=== PATIENT | male | born 2000 | race Caucasian/White ===

== ENCOUNTER 2020-11-04 20:57 | Emergency (ER) | payer MEDICAID ==
[~2020-11-04] VITALS: Ht 185.4 cm; Wt 90.1 kg
[2020-11-04 20:59] VITALS: BP 143/74
[2020-11-04] MEDS ORDERED: TETanus/Pertussis (Acell)/Diphther VAC/PF (Tdap-Adult) 0.5ml syringe IMVAC ONE (21:25)
[2020-11-04] MEDS ORDERED: normal saline 1000ML IV soln IVB ONE ×2 (21:25)
[2020-11-04 21:51] LABS: BASOPHILS % (AUTO) 0.3 % (0-1); EOSINOPHILS # (AUTO) 0.1 X10'3 (0-0.9); EOSINOPHILS % (AUTO) 0.7 % (0-6); HEMATOCRIT 41.8 % (42.0-52.0); HEMOGLOBIN 14.2 g/dl (14.0-17.9); LYMPHOCYTES % (AUTO) 9.3 % (21-51); MEAN CORPUSCULAR HEMOGLOBIN 30.3 PG (27.0-31.0); MEAN CORPUSCULAR HGB CONC 33.9 g/dL (33.0-36.5); MEAN CORPUSCULAR VOLUME 89.4 FL (78-98); MEAN PLATELET VOLUME 7.5 FL (7.4-10.4); MONOCYTES % (AUTO) 8.8 % (2-12); NEUTROPHILS % (AUTO) 80.9 % (42-75); PLATELET COUNT 291 X10'3 (140-440); RED BLOOD COUNT 4.67 X10'6 (4.70-6.10); RED CELL DISTRIBUTION WIDTH 13.9 % (11.5-14.5); WHITE BLOOD COUNT 11.1 X10'3 (4.5-11.0)
[2020-11-04 22:05] LABS: ALANINE AMINOTRANSFERASE 20 U/L (12-78); ALBUMIN 3.7 G/DL (3.4-5.0); ALBUMIN/GLOBULIN RATIO 1.2 (1.1-1.5); ALKALINE PHOSPHATASE 67 IU/L (46-116); ANION GAP 13 (8-16); ASPARTATE AMINO TRANSFERASE 20 U/L (10-37); BILIRUBIN,TOTAL 0.7 MG/DL (0.1-1.0); BLOOD UREA NITROGEN 15 MG/DL (7-18); BUN/CREATININE RATIO 9.7 (5.4-32.0); CALCIUM 8.4 MG/DL (8.5-10.1); CHLORIDE 107 MMOL/L (99-107); CREATININE 1.54 MG/DL (0.60-1.10); GLUCOSE 95 MG/DL (70-104); POTASSIUM 3.1 MMOL/L (3.5-5.1); SODIUM 144 MMOL/L (135-145); TOTAL CARBON DIOXIDE 23.7 MMOL/L (24-32); TOTAL PROTEIN 6.8 G/DL (6.4-8.2); eGFR 57 ML/MIN
[2020-11-04 22:18] LABS: CKMB RELATIVE INDEX 0.3 RATIO (0-2.5); CREATINE KINASE 610 U/L (39-308); ETHANOL < 0.010 GM/DL (0.0-0.010)
== END 2020-11-04 22:53 ==
LOC: EDSEX 20:58 → ER 20:58
DX: S01.81XA Laceration without foreign body of other part of head, initial encounter (principal); S00.83XA Contusion of other part of head, initial encounter; F15.10 Other stimulant abuse, uncomplicated; Z02.89 Encounter for other administrative examinations; Y04.8XXA Assault by other bodily force, initial encounter; Y93.89 Activity, other specified; Y92.89 Other specified places as the place of occurrence of the external cause; Y99.8 Other external cause status
CPT/HCPCS: 36415; 70450; 70486; 80053; 80320; 82550; 82553; 84443; 85025; 90715; 99285; J7030; 96360

== ENCOUNTER 2024-10-02 17:36 | Inpatient (IN) | payer BC ==
[~2024-10-02] VITALS: Ht 188 cm; Wt 87.5 kg
[2024-10-02] MEDS ORDERED: acetaminophen 325mg tablet PO PRN (19:30)
[2024-10-02] MEDS ORDERED: magnesium hydroxide 30ml (MOM) UD suspension PO PRN (19:30)
[2024-10-02] MEDS ORDERED: loperamide 2mg capsule PO PRN (19:30)
[2024-10-02] MEDS ORDERED: mag hydrox/Alum hydrox/simeth 30ml oral suspension PO PRN (19:30)
[2024-10-02 19:37] VITALS: BP 148/79; PULSE 90; RESP 20; TEMP 98.6; O2SAT 100
[2024-10-02] MEDS: buprenorphine/naloxone 8MG-2MG SUBlingual film SL SCH (21:30)
[2024-10-03] MEDS: acetaminophen 325mg tablet PO PRN (00:32)
[2024-10-03 07:00] VITALS: RESP 15; O2SAT 100
[2024-10-03 07:04] LABS: CHOL/HDL RATIO 2.5 (0.00-4.99); CHOLESTEROL 135 MG/DL (0-200); HDL CHOLESTEROL 55 MG/DL (35-60); LDL CHOLESTEROL 74 MG/DL (50-100); TRIGLYCERIDES 44 MG/DL (20-135)
[2024-10-03 07:28] LABS: HEMOGLOBIN A1C 5.3 % (4.5-6.2)
[2024-10-03 08:00] VITALS: BP 131/77; PULSE 74; RESP 15; TEMP 97.7; O2SAT 100
--- NOTE | 2024-10-03 09:03 | HISTORY AND PHYSICAL ---
History & Physical Providers to CC ~ History of Present Illness Reason for Admit\Complaint: SUICIDAL ATTEMPT History of Present Illness HISTORY OF PRESENT ILLNESS PATIENT IS A PLEASANT 23-YEAR-OLD THAT DENIES ANY PAST MEDICAL HISTORY OF SIGNIFICANCE DENIES ANY DEPRESSION OR PSYCH HISTORY. HE SAYS HE WAS NOT ON ANY MEDICATIONS SHE JUST HAD A REALLY BAD DAY HE WAS ALL STRESSED OUT AND HE DECIDED HE WAS GOING TO END IT BY TRYING TO HANG HIMSELF. Allergies: Coded Allergies: No Known Allergies (Unverified , 11/04/20) Past Medical History Past Medical History PAST MEDICAL HISTORY NOTHING OF SIGNIFICANCE PAST SURGICAL HISTORY NOTHING OF SIGNIFICANCE SOCIAL HISTORY SMOKES A PACK A DAY AND THOUGH HE DENIES DRINKING AFTER QUESTIONING HIM MULTIPLE TIMES HE ADMITS TO DRINKING 2-3 DRINKS EVERY OTHER DAY AND THE ABUSE OF FENTANYL HE SAYS HE IS IN THE DATING GAME HE IS DATING A GIRLFRIEND FAMILY HISTORY NOTHING OF SIGNIFICANCE ALLERGIES ARE NKDA REVIEW OF SYSTEMS IS NEGATIVE FOR ALL 10 SYSTEMS REVIEWED Exam Vitals: Vital Signs Date Time Temp Pulse Resp B/P (MAP) Pulse Ox O2 Delivery O2 Flow Rate FiO2 10/02/24 21:00 Room Air 10/02/24 19:37 98.6 90 20 148/79 (102) 100 General: PATIENT IS ALERT AND ORIENTED X4 IN NO ACUTE DISTRESS LYING DOWN COMFORTABLY SPEAKING IN FULL SENTENCES HEENT NORMOCEPHALIC NONTRAUMATIC HEAD PERRLA. EOMI. CV[facility] FIRST AND SECOND HEART SOUNDS ARE REGULAR RATE RHYTHM NO MURMURS GALLOPS OR RUBS RESPIRATORY SYSTEM IS CLEAR TO AUSCULTATE BILATERALLY NO RALES RHONCHI CRACKLES OR WHEEZING ABDOMEN IS SOFT BOWEL SOUNDS ARE POSITIVE NONTENDER NONDISTENDED SCAPHOID EXTREMITIES NO CLUBBING CYANOSIS OR EDEMA NEUROLOGICAL EXAM NO FOCAL DEFICITS Additional Plan ASSESSMENT AND PLAN SUICIDAL ATTEMPT PATIENT IS ON A 5150 MEDICATIONS PER PSYCHIATRY MEDICINE WE WILL CONTINUE TO FOLLOW PER PROTOCOL Date of Service: Oct 03, 2024 Billing Provider: BREE NGUYEN MD Common Visit Codes: [id number] INP/OBS CARE (LOW) BREE NGUYEN MD Oct 03, 2024 09:02
--- NOTE | 2024-10-03 14:02 | HISTORY AND PHYSICAL ---
History & Physical - Blank History and Physical CHIEF COMPLAINT SUICIDE ATTEMPT-HANGING FOR APPROXIMATELY 2 MINUTES HISTORY OF PRESENT ILLNESS Patient is a 23-year-old male presenting to our ED with chief complaint of s uicide attempt by hanging. Patient was brought in via EMS after his girlfriend saw him trying to [place] himself in the [place]. Patient reportedly was hanging from the rope for approximately 2 minutes was confused as he fell to the ground. EMS put him in a collar and patient was complaining of neck pain. No intentional ingestion has been having suicidal thoughts for the past few days. Reports he had a g of meth ingestion prior to his suicide attempt. CHART REVIEW Pt attempted suicide by hanging himself, gf cut him down. Pt has a long hx of mh since he witnessed his uncles murder. Pt also has a substance us issue for the last 5 years. Pt is homeless but has a supportive grandmother. ASSESSMENT The patient is interviewed in observation room. Patient seen actively resting in bed with eyes closed. The patient endorses "I am feeling good." A lot better than I did yesterday, the rope is not hurting as bad." "It was just a messed up day and I just wanted it over." "I just couldn't fucking find any drugs and it felt like everything was falling apart." "I just decide to hang myself." The patient endorses his drug of choice is fentanyl. The patient endorses he wants to try to get on fentanyl. The patient endorses he has been using fentanyl for about 2 years. The patient endorses he was diagnosed with PTSD at the age of 6 after witnessing his uncle get murdered but never taken any medication for it. The patient endorses he has been a little depressed for about 6 months after going through a ruff break-up. Denies SI. Denies HI. Denies AVH. The patient is stable no acute distress noted. The patient is anxious, depressed, and engaged during session. Per staff report no behavior issues. The patient was educated on medication compliance to sustain stabilization. Will continue daily assessment and adjusting treatment as needed. Closely monitor behavior and response to medication during hospitalization. Discussed treatment plan with patient. ASE/risks and benefits of chosen treatment. He verbalized understanding and consented to treatment. REVIEW OF LABS URINE DRUG SCREEN POSITIVE FENTANYL URINALYSIS NEGATIVE COVID NEGATIVE INFLUENZA A NEGATIVE INFLUENZA B NEGATIVE WBC 9.3 RBC 3.83 HEMOGLOBIN 11.4 HEMATOCRIT 33.2 PLATELETS 274 SODIUM 141 POTASSIUM 3.3 ANION GAP 11 GLUCOSE 89 BUN 18 CREATININE 0.84 CALCIUM 7.9 ALBUMIN 3.5 ALT 13 AST 17 MENTAL STATUS EXAM APPEARANCE: DISHEVELED SPEECH: CIRCUMSTANTIAL EYE CONTACT: AVOIDANT AFFECT: FLAT MOOD: DEPRESSED, ANXIOUS ORIENTATION IMPAIRMENT: NONE MEMORY IMPAIRMENT: NONE ATTENTION: DISTRACTED HALLUCINATION: NONE SUICIDALITY: NONE DELUSIONS: NONE BEHAVIOR: GUARDED JUDGMENT: POOR INSIGHT: POOR TREATMENT SUBOXONE 1 FILM SUBLINGUALLY DAILY ZOLOFT 50MG PO DAILY Monitoring by Staff, Milieu, Group, and Individual counseling as needed -- According to the [place] Suicide Assessment the above named patient is on Q 15 MINUTE CHECKS. [id number] patient does not have a good safety plan for discharge at this time. We are still titrating medications to an effective dose while maintaining a therapeutic environment to prevent decompensation and readmission. REVIEW OF Clinical notes [X ] RN notes [X] PCT documentation [X] SW notes Labs [ X] Medications [X] Care trends/care activity [X] Vitals [X] DISCUSSION WITH laborer plumbing [X] Staff SW [X] Treatment Team [X] DISCHARGE UNSURE AT THIS TIME. DISCHARGE HOME ONCE STABLE. Past Psychiatric History Past Psychiatric History DENIES ANY GRADUALLY HOSPITALIZATION Past Medical History Past Medical History SEE MEDICAL H AND P Past Surgical History Past Surgical History RIGHT SHOULDER SURGERY Substance Abuse History Substance Abuse History FENTANYL-ABOUT 2 YEARS TOBACCO-DAILY ALCOHOL-DENIES MARIJUANA-DENIES Personal History Current Living Situation IN [facility] Marital & Relationship History NEVER . NO CHILDREN. IN RELATIONSHIP Sexual History DEFER Occupational History UNEMPLOYED Social Activity BORN AND RAISED IN [facility] [employer] NO COLLEGE GREW UP BETWEEN MOM AND DAD [employer] DENIES Legal History POSSESSION OF SELLS History DENIES ANY HISTORY Developmental History Childhood DENIES ANY FORM OF ABUSE GROWING UP CODING VISIT-PSYCHIATRY Date of Service: Oct 03, 2024 Billing Provider: JACKELYN MORGAN APRN Psych Common Visit Codes: [id number] INP/OBS CARE (High) JACKELYN MORGAN APRN Oct 03, 2024 14:02
[2024-10-03] MEDS: sertraline 50mg tablet PO SCH (14:29)
[2024-10-03 19:00] VITALS: RESP 16; O2SAT 99
[2024-10-03 20:00] VITALS: BP 131/86; PULSE 82; RESP 16; TEMP 97.8; O2SAT 99
[2024-10-04 07:30] VITALS: BP 131/86; PULSE 86; RESP 18; TEMP 97.8; O2SAT 98
[2024-10-04 08:00] VITALS: RESP 18; O2SAT 98
--- NOTE | 2024-10-04 12:32 | PROGRESS NOTE ---
Progress Note Dictate Providers to CC ~ Central Line/PICC still needed: N\\A Antibiotic Ordered?: No MRSA Education MRSA Education Provided to pt: No Objective Vitals Vital Signs Date Time Temp Pulse Resp B/P (MAP) Pulse Ox O2 Delivery O2 Flow Rate FiO2 10/04/24 07:30 97.8 86 18 131/86 (101) 98 Room Air Psychiatrist's Progress Note Date of Service: Oct 04, 2024 Notes CHART REVIEW Pt attempted suicide by hanging himself, gf cut him down. Pt has a long hx of mh since he witnessed his uncles murder. Pt also has a substance us issue for the last 5 years. Pt is homeless but has a supportive grandmother. ASSESSMENT The patient is interviewed in observation room. Patient seen actively resting sitting in rec room. The patient endorses "I am feeling a little bit better." "Anxiety is present but not bad." The patient endorses "I am still depressed." Patient endorses he would like to be discharged once cleared and then possibly admit himself into a rehab. Denies SI. Denies HI. Denies AVH. The patient is stable no acute distress noted. The patient is less anxious, depressed, and engaged during session. Per staff report no behavior issues. The patient was educated on medication compliance to sustain stabilization. Will continue daily assessment and adjusting treatment as needed. Closely monitor behavior and response to medication during hospitalization. Results Of any Diagn. Testing REVIEW OF LABS URINE DRUG SCREEN POSITIVE FENTANYL URINALYSIS NEGATIVE COVID NEGATIVE INFLUENZA A NEGATIVE INFLUENZA B NEGATIVE WBC 9.3 RBC 3.83 HEMOGLOBIN 11.4 HEMATOCRIT 33.2 PLATELETS 274 SODIUM 141 POTASSIUM 3.3 ANION GAP 11 GLUCOSE 89 BUN 18 CREATININE 0.84 CALCIUM 7.9 ALBUMIN 3.5 ALT 13 AST 17 Speech: Other (CIRCUMSTANTIAL) Eye Contact: Avoidant Motor Activity: Normal Affect: Flat Mood: Anxious, Depressed Orientation Impairment: None Memory Impairment: None Attention: Normal Hallucinations: None Other: None Suicidality: None Homicidality: None Delusions: None Behavior: Cooperative Insight: Poor Judgment: Poor Treatment SUBOXONE 1 FILM SUBLINGUALLY DAILY ZOLOFT 50MG PO DAILY HYDROXYZINE 50MG Q.6 PO PRN-ANXIETY/AGITATION Monitoring by Staff, Milieu, Group, and Individual counseling as needed -- According to the [place] Suicide Assessment the above named patient is on Q 15 MINUTE CHECKS. [id number]-The patient does not have a good safety plan for discharge at this time. We are still titrating medications to an effective dose while maintaining a therapeutic environment to prevent decompensation and readmission. REVIEW OF Clinical notes [X ] RN notes [X] PCT documentation [X] SW notes Labs [ X] Medications [X] Care trends/care activity [X] Vitals [X] DISCUSSION WITH central supply aide [X] Staff SW [X] Treatment Team [X] Discharge UNSURE AT THIS TIME. DISCHARGE HOME ONCE STABLE. CODING VISIT-PSYCHIATRY Date of Service: Oct 04, 2024 Billing Provider: JACKELYN MORGAN APRN Psych Common Visit Codes: [id number] INP/OBS CARE(Mod) JACKELYN MORGAN APRN Oct 04, 2024 12:32
[2024-10-04 20:00] VITALS: BP 125/77; PULSE 81; RESP 16; TEMP 99; O2SAT 99
[2024-10-04 20:49] VITALS: RESP 16; O2SAT 99
[2024-10-05 07:17] VITALS: BP 133/70; PULSE 82; RESP 16; TEMP 97.8; O2SAT 100
[2024-10-05 08:00] VITALS: RESP 16; O2SAT 100
--- NOTE | 2024-10-05 14:11 | PROGRESS NOTE ---
Progress Note Dictate Providers to CC ~ Central Line/PICC still needed: N\\A Antibiotic Ordered?: No MRSA Education MRSA Education Provided to pt: No Objective Vitals Vital Signs Date Time Temp Pulse Resp B/P (MAP) Pulse Ox O2 Delivery O2 Flow Rate FiO2 10/05/24 07:17 97.8 82 16 133/70 (91) 100 Room Air Psychiatrist's Progress Note Date of Service: Oct 05, 2024 Notes CHART REVIEW Pt attempted suicide by hanging himself, gf cut him down. Pt has a long hx of mh since he witnessed his uncles murder. Pt also has a substance us issue for the last 5 years. Pt is homeless but has a supportive grandmother. ASSESSMENT The patient is interviewed in observation room. Patient seen actively walking in hallway. The patient endorses "I am feeling good." The patient endorses "the anxiety is presents but not too bad. Denies SI. Denies HI. Denies AVH. Patient endorses adequate sleep and food intake. The patient is stable no acute distress noted. The patient is less anxious, a bit depressed, and engaged during session. Per staff report no behavior issues. The patient was educated on medication compliance to sustain stabilization. Will continue daily assessment and adjusting treatment as needed. Closely monitor behavior and response to medication during hospitalization. Results Of any Diagn. Testing REVIEW OF LABS URINE DRUG SCREEN POSITIVE FENTANYL URINALYSIS NEGATIVE COVID NEGATIVE INFLUENZA A NEGATIVE INFLUENZA B NEGATIVE WBC 9.3 RBC 3.83 HEMOGLOBIN 11.4 HEMATOCRIT 33.2 PLATELETS 274 SODIUM 141 POTASSIUM 3.3 ANION GAP 11 GLUCOSE 89 BUN 18 CREATININE 0.84 CALCIUM 7.9 ALBUMIN 3.5 ALT 13 AST 17 Appearnace: Other Speech: Other (CIRCUMSTANTIAL) Eye Contact: Other (INTERMITTENT) Motor Activity: Normal Affect: Flat Mood: Depressed Orientation Impairment: None Memory Impairment: None Attention: Normal Hallucinations: None Other: None Suicidality: None Homicidality: None Delusions: None Behavior: Guarded Insight: Poor Judgment: Poor Treatment SUBOXONE 1 FILM SUBLINGUALLY DAILY Increase ZOLOFT 75MG PO DAILY HYDROXYZINE 50MG Q.6 PO PRN-ANXIETY/AGITATION Monitoring by Staff, Milieu, Group, and Individual counseling as needed -- Acc ording to the [place] Suicide Assessment the above named patient is on Q 15 MINUTE CHECKS. [id number]-The patient does not have a good safety plan for discharge at this time. We are still titrating medications to an effective dose while maintaining a therapeutic environment to prevent decompensation and readmission. REVIEW OF Clinical notes [X ] RN notes [X] PCT documentation [X] SW notes Labs [ X] Medications [X] Care trends/care activity [X] Vitals [X] DISCUSSION WITH griddle attendant [X] Staff SW [X] Treatment Team [X] Discharge UNSURE AT THIS TIME. DISCHARGE HOME ONCE STABLE CODING VISIT-PSYCHIATRY Date of Service: Oct 05, 2024 Billing Provider: JACKELYN MORGAN APRN Psych Common Visit Codes: [id number] INP/OBS CARE(Mod) JACKELYN MORGAN APRN Oct 05, 2024 14:11
--- NOTE | 2024-10-05 16:35 | PROGRESS NOTE- Residence ---
Progress Note - Resident Providers to CC Resident Creating Document: GURPREET ANDREW, JENY ~ Antibiotic Timeout Antibiotic Ordered?: No Subjective The patient has been evaluated at the bedside. The patient is currently medically asymptomatic. He mentioned that he came here due to suicidal ideation currently feeling better. Objective Vital Signs Date Time Temp Pulse Resp B/P (MAP) Pulse Ox O2 Delivery O2 Flow Rate FiO2 10/05/24 07:17 97.8 82 16 133/70 (91) 100 Room Air Physical exam: General: Well alert, well oriented, not confused, not agitated, not in acute distress, well cooperated during the physical. HEENT: Conjunctive are pink, sclerae clear, no icterus, pupil is equal in both sides, reactive to light, no ear discharge, no pharyngeal erythema or an edema. Neck: Supple, no JVD, no lymphadenopathy and thyromegaly. Chest: Equal air entry on both lungs, no additional sounds no rhonchi no wheezing at the moment. Cardiovascular: S1-S2 regular sinus rhythm and, regular rate, no gallops, no rubs, no murmurs Abdomen: No visible peristalsis, Bowel sounds present on auscultation, soft, nontender, no guarding, no rigidity Extremities: No obvious deformities, no pitting edema bilaterally, capillary refill intact, peripheral pulsations are intact on both sides Central Nervous System: No focal neurological deficits, no motor or sensory weakness in all 4 extremities, could move all 4 extremities, 2+ deep tendon reflexes, negative Babinski. Musculoskeletal: No joint swelling, deformities, inflammations, and no scoliosis and back tenderness Skin: Warm and dry. Assessment Assessment 23-year-old male patient admitted to [facility] due to suicidal ideation. Plan Plan Suicidal ideation: The patient mentioned that he had suicidal ideation. Sertraline 75 mg daily. Hydroxyzine 50 mg q.6 hours PRN for anxiety. Continue management as per Psychiatry. The patient currently denies any medical complaints. Disposition: Hospitalist team will continue to evaluate the patient daily. Gurpreet Wells Internal Medicine Resident [facility] Date of Service: Oct 05, 2024 Billing Provider: CLARISA ISAAC MD, FRANCO LUIS, JENY Oct 05, 2024 16:35
[2024-10-05 19:28] VITALS: RESP 18; O2SAT 99
[2024-10-05 19:33] VITALS: BP 133/77; PULSE 74; RESP 18; TEMP 98.6; O2SAT 99
[2024-10-06 07:32] VITALS: BP 101/68; PULSE 71; RESP 15; TEMP 98.1; O2SAT 99
[2024-10-06 08:00] VITALS: RESP 15; O2SAT 99
[2024-10-06] MEDS: sertraline 25mg tablet PO SCH (08:26)
--- NOTE | 2024-10-06 11:54 | PROGRESS NOTE ---
Progress Note Dictate Providers to CC ~ Central Line/PICC still needed: N\\A Antibiotic Ordered?: No MRSA Education MRSA Education Provided to pt: No Objective Vitals Vital Signs Date Time Temp Pulse Resp B/P (MAP) Pulse Ox O2 Delivery O2 Flow Rate FiO2 10/06/24 07:32 98.1 71 15 101/68 (79) 99 Room Air Psychiatrist's Progress Note Date of Service: Oct 06, 2024 Notes CHART REVIEW Pt attempted suicide by hanging himself, gf cut him down. Pt has a long hx of mh since he witnessed his uncles murder. Pt also has a substance us issue for the last 5 years. Pt is homeless but has a supportive grandmother. ASSESSMENT The patient is interviewed in observation room. Patient seen actively resting in bed with eyes open. The patient endorses "okay." The patient has no plan for safety. The patient endorses his plan is to go fine his girlfriend whom is "homeless" and a drug "addict" and if I need my grandmother she is just around the corner." The patient endorses "I have 10 strips of Suboxone at home that I can use." Denies SI. Denies HI. Denies AVH. Patient endorses adequate sleep and food intake. The patient is stable no acute distress noted. The patient is guarded, d epressed, and engaged during session. Per staff report no behavior issues. Staff report patient is medication compliant. Will continue daily assessment and adjusting treatment as needed. Closely monitor behavior and response to medication during hospitalization. Results Of any Diagn. Testing REVIEW OF LABS URINE DRUG SCREEN POSITIVE FENTANYL URINALYSIS NEGATIVE COVID NEGATIVE INFLUENZA A NEGATIVE INFLUENZA B NEGATIVE WBC 9.3 RBC 3.83 HEMOGLOBIN 11.4 HEMATOCRIT 33.2 PLATELETS 274 SODIUM 141 POTASSIUM 3.3 ANION GAP 11 GLUCOSE 89 BUN 18 CREATININE 0.84 CALCIUM 7.9 ALBUMIN 3.5 ALT 13 AST 17 Appearnace: Other Speech: Other (CIRCUMSTANTIAL) Eye Contact: Other (INTERMITTENT) Motor Activity: Normal Affect: Flat Mood: Depressed Orientation Impairment: None Memory Impairment: None Attention: Normal Hallucinations: None Other: None Suicidality: None Homicidality: None Delusions: None Behavior: Guarded Insight: Poor Judgment: Poor Treatment SUBOXONE 1 FILM SUBLINGUALLY DAILY Increase ZOLOFT 100MG PO DAILY HYDROXYZINE 50MG Q.6 PO PRN-ANXIETY/AGITATION Monitoring by Staff, Milieu, Group, and Individual counseling as needed -- According to the [place] Suicide Assessment the above named patient is on Q 15 MINUTE CHECKS. [id number]-The patient does not have a good safety plan for discharge at this time. We are still titrating medications to an effective dose while maintaining a therapeutic environment to prevent decompensation and readmission. REVIEW OF Clinical notes [X ] RN notes [X] PCT documentation [X] SW notes Labs [ X] Medications [X] Care trends/care activity [X] Vitals [X] DISCUSSION WITH half section ironer [X] Staff SW [X] Treatment Team [X] Discharge UNSURE AT THIS TIME. DISCHARGE HOME ONCE STABLE CODING VISIT-PSYCHIATRY Date of Service: Oct 06, 2024 Billing Provider: JACKELYN MORGAN APRN Psych Common Visit Codes: [id number] INP/OBS CARE(Mod) JACKELYN MORGAN APRN Oct 06, 2024 11:54
[2024-10-06 19:37] VITALS: RESP 18; O2SAT 90
[2024-10-06 19:48] VITALS: BP 137/73; PULSE 90; RESP 18; TEMP 98.6; O2SAT 99
[2024-10-07 07:00] VITALS: BP 106/70; PULSE 82; RESP 16; TEMP 98.7; O2SAT 100
[2024-10-07 08:36] VITALS: RESP 16; O2SAT 100
[2024-10-07] MEDS: sertraline 50mg tablet PO SCH (08:36)
--- NOTE | 2024-10-07 13:40 | PROGRESS NOTE- Residence ---
Progress Note - Resident Providers to CC Resident Creating Document: JOSE RINALDI, JENY ~ Antibiotic Timeout Antibiotic Ordered?: No Subjective The patient has been evaluated at the bedside. The patient is currently medically asymptomatic. Objective Vital Signs Date Time Temp Pulse Resp B/P (MAP) Pulse Ox O2 Delivery O2 Flow Rate FiO2 10/07/24 08:36 16 100 Room Air 10/07/24 07:00 98.7 82 106/70 (82) General: Awake and Alert, no acute distress. HEENT: Conjunctiva pink, Sclera clear, Mucus Membranes moist. Resp: Bilateral lung sounds are clear. Heart: Regular Rate and rhythm, normal S1 and S2 without murmur, rub or gallop. Abdomen: no tenderness, no guarding, no rigidity, bowel sounds heard Extremities: No cyanosis,clubbing or edema. EXHIBIT DISPLAY REPRESENTATIVE: Conscious, coherent, oriented x3. No motor or sensory deficits. No cranial nerve deficits Skin: Warm and Dry. No purpura noted, Assessment Assessment 23-year-old male patient admitted to [facility] due to suicidal ideation. Plan Plan Suicidal ideation: The patient mentioned that he had suicidal ideation. Sertraline 75 mg daily. Hydroxyzine 50 mg q.6 hours PRN for anxiety. Continue management as per Psychiatry. The patient currently denies any medical complaints. Disposition: Hospitalist team will continue to evaluate the patient daily. Jose Rinaldi M.D PGY1 Date of Service: Oct 07, 2024 Billing Provider: JORJE BOLTON MD Common Visit Codes: [id number] INP/OBS CARE(MOD) JOSE RINALDI, JENY Oct 07, 2024 13:40 JORJE BOLTON MD Oct 07, 2024 21:15
[2024-10-07 14:30] VITALS: BP 116/47; PULSE 76; O2SAT 95
[2024-10-07] MEDS ORDERED: ondansetron 4mg rapidly disintigrating tab PO PRN (14:35)
--- NOTE | 2024-10-07 14:40 | PROGRESS NOTE ---
Progress Note Dictate Providers to CC ~ Central Line/PICC still needed: N\A Antibiotic Ordered?: No MRSA Education MRSA Education Provided to pt: No Objective Vitals Vital Signs Date Time Temp Pulse Resp B/P (MAP) Pulse Ox O2 Delivery O2 Flow Rate FiO2 10/07/24 08:36 16 100 Room Air 10/07/24 07:00 98.7 82 106/70 (82) Psychiatrist's Progress Note Date of Service: Oct 07, 2024 Notes CHART REVIEW Pt attempted suicide by hanging himself, gf cut him down. Pt has a long hx of mh since he witnessed his uncles murder. Pt also has a substance us issue for the last 5 years. Pt is homeless but has a supportive grandmother. ASSESSMENT The patient refused assessment today. Per staff report patient status post fall in hallway. Per staff report no behavior issues. Staff report patient is medication compliant. Will continue daily assessment and adjusting treatment as needed. Closely monitor behavior and response to medication during hospitalization. Results Of any Diagn. Testing REVIEW OF LABS URINE DRUG SCREEN POSITIVE FENTANYL URINALYSIS NEGATIVE COVID NEGATIVE INFLUENZA A NEGATIVE INFLUENZA B NEGATIVE WBC 9.3 RBC 3.83 HEMOGLOBIN 11.4 HEMATOCRIT 33.2 PLATELETS 274 SODIUM 141 POTASSIUM 3.3 ANION GAP 11 GLUCOSE 89 BUN 18 CREATININE 0.84 CALCIUM 7.9 ALBUMIN 3.5 ALT 13 AST 17 Insight: Poor Judgment: Poor Treatment SUBOXONE 1 FILM SUBLINGUALLY DAILY ZOLOFT 100MG PO DAILY HYDROXYZINE 50MG Q.6 PO PRN-ANXIETY/AGITATION Monitoring by Staff, Milieu, Group, and Individual counseling as needed -- According to the [place] Suicide Assessment the above named patient is on Q 15 MINUTE CHECKS. [id number] patient does not have a good safety plan for discharge at this time. We are still titrating medications to an effective dose while maintaining a therapeutic environment to prevent decompensation and readmission. REVIEW OF Clinical notes [X ] RN notes [X] PCT documentation [X] SW notes Labs [ X] Medications [X] Care trends/care activity [X] Vitals [X] DISCUSSION WITH chrome tanner [X] Staff SW [X] Treatment Team [X] Discharge UNSURE AT THIS TIME. DISCHARGE HOME ONCE STABLE CODING VISIT-PSYCHIATRY Date of Service: Oct 07, 2024 Billing Provider: JACKELYN MORGAN APRN Psych Common Visit Codes: [id number] INP/OBS CARE(Low) JACKELYN MORGAN COMMUNITY CASE MANAGER Oct 07, 2024 14:40
[2024-10-07 19:00] VITALS: RESP 16; O2SAT 99
[2024-10-07] MEDS: hydrOXYzine 25 MG tablet PO PRN (19:47)
[2024-10-07 20:00] VITALS: BP 110/62; PULSE 80; RESP 18; TEMP 99.1; O2SAT 99
[2024-10-08 07:00] VITALS: RESP 12; O2SAT 99
[2024-10-08 08:00] VITALS: BP 122/93; PULSE 92; RESP 12; TEMP 98.4; O2SAT 99
[2024-10-08 10:03] VITALS: PULSE 71
--- NOTE | 2024-10-08 11:59 | PROGRESS NOTE ---
Progress Note Dictate Providers to CC ~ Central Line/PICC still needed: N\A Antibiotic Ordered?: No Objective Vitals Vital Signs Date Time Temp Pulse Resp B/P (MAP) Pulse Ox O2 Delivery O2 Flow Rate FiO2 10/08/24 10:03 71 10/08/24 08:00 98.4 12 122/93 (103) 99 Room Air Problem\Assessment\Plan Problems/Diagnosis: (1) Major depress dis, severe (2) Methamphetamine abuse (3) Suicide attempt (4) Opioid abuse Psychiatrist's Progress Note Date of Service: Oct 08, 2024 Notes Mr Aric Serrano is a 23-year-old male was BIB EMS to the [facility] ED with SI and attempt by hanging. His girlfriend saw him trying to hang himself in the park where he reportedly hung from the rope for approximately 2 minutes was confused as he fell to the ground. EMS put him in a collar and patient was complaining of neck pain. No intentional ingestion has been having suicidal thoughts for the past few days. Reports he had a g of meth ingestion prior to his suicide attempt. CHART REVIEW Pt attempted suicide by hanging himself, gf cut him down. Pt has a long hx of mh since he witnessed his uncles murder. Pt also has a substance us issue for the last 5 years. Pt is homeless but has a supportive grandmother. Patient is a tall thin male. Short black hair. Short scruffy facial hair. Has noticeable self inflicted bruising around his neck. Wearing green scrubs. He has been doing a lot better since admission. Socially interacting and trying not to isolate. He states it is not just the drugs that caused him to feel depressed. Feeling less depressed since admission. No current SI. Not since he's been here. He states after he came to he 'Immediately regretted my decision.' 'Want to live.' Denies AH/VH. Denies Paranoia. Sleep been doing pretty good. Good appetite. Plans to return to grandmother's home and get support to keep him away from drugs. He is going to f/u with psychiatry. Definitely go to drug and alcohol counseling. Mental Status BEHAVIOR: Calm and Cooperative EYE CONTACT: avoidant/intermittent. SPEECH: Circumstantial. Not racing. Mild stuttering. AFFECT: Constricted with brightening. MOOD: Mild anxiety ORIENTATION IMPAIRMENT: None MEMORY IMPAIRMENT: None ATTENTION: Fair. Slightly distracted HALLUCINATION: Denies SUICIDALITY: Denies DELUSIONS: Not noted INSIGHT: Fair/Improved. JUDGMENT: Poor Results Of any Diagn. Testing REVIEW OF LABS URINE DRUG SCREEN POSITIVE FENTANYL URINALYSIS NEGATIVE COVID NEGATIVE INFLUENZA A NEGATIVE INFLUENZA B NEGATIVE WBC 9.3 RBC 3.83 HEMOGLOBIN 11.4 HEMATOCRIT 33.2 PLATELETS 274 SODIUM 141 POTASSIUM 3.3 ANION GAP 11 GLUCOSE 89 BUN 18 CREATININE 0.84 CALCIUM 7.9 ALBUMIN 3.5 ALT 13 AST 17 Treatment SUBOXONE 1 FILM SUBLINGUALLY DAILY ZOLOFT 100MG PO DAILY HYDROXYZINE 50MG Q.6 PO PRN-ANXIETY/AGITATION Monitoring by Staff, Milieu, Group, and Individual counseling as needed -- According to the [place] Suicide Assessment the above named patient is on Q 15 MINUTE CHECKS. [id number] patient does not have a good safety plan for discharge at this time. We are still titrating medications to an effective dose while maintaining a therapeutic environment to prevent decompensation and readmission. REVIEW OF Clinical notes [X ] RN notes [X] PCT documentation [X] SW notes [X] Labs [ X] Medications [X] Care trends/care activity [X] Vitals [X] DISCUSSION WITH meal miller [X] DISCHARGE DISCHARGE HOME WITH HIS GRANDMA ONCE STABLE. CODING VISIT-PSYCHIATRY Date of Service: Oct 08, 2024 Billing Provider: LANE HOOPER Psych Common Visit Codes: [id number] INP/OBS CARE(High) LANE HOOPER Oct 08, 2024 11:59
[2024-10-08 19:00] VITALS: RESP 16; O2SAT 98
[2024-10-08 20:00] VITALS: BP 105/65; PULSE 98; RESP 17; TEMP 98.1; O2SAT 98
[2024-10-09 07:38] VITALS: BP 112/65; PULSE 70; RESP 20; TEMP 98.7; O2SAT 99
--- NOTE | 2024-10-09 14:31 | PROGRESS NOTE ---
Progress Note Dictate Providers to CC ~ Central Line/PICC still needed: N\A Antibiotic Ordered?: No Objective Vitals Vital Signs Date Time Temp Pulse Resp B/P (MAP) Pulse Ox O2 Delivery O2 Flow Rate FiO2 10/09/24 07:38 98.7 70 20 112/65 (81) 99 Room Air Problem\Assessment\Plan Problems/Diagnosis: (1) Major depress dis, severe (2) Methamphetamine abuse (3) Suicide attempt Psychiatrist's Progress Note Date of Service: Oct 09, 2024 Notes Mr Aric Serrano is a 23-year-old male was BIB EMS to the [facility] ED with SI and attempt by hanging. His girlfriend saw him trying to hang himself in the park where he reportedly hung from the rope for approximately 2 minutes was confused as he fell to the ground. EMS put him in a collar and patient was complaining of neck pain. No intentional ingestion has been having suicidal thoughts for the past few days. Reports he had a g of meth ingestion prior to his suicide attempt. CHART REVIEW Pt attempted suicide by hanging himself, girlfriend cut him down. Pt has a long hx of mh since he witnessed his uncles murder. Pt also has a substance us issue for the last 5 years. Pt is homeless but has a supportive grandmother. Patient is a tall thin male. Short black hair. Short scruffy facial hair. Has noticeable self inflicted bruising around his neck. Wearing green scrubs. Doing alright. Feeling pretty good today. Hanging out, watching room mate get his nails done. Talking and reading a book. A long time since he read a book. Can concentrate on it. Not depressed or sad. Always had some bad anxiety. Mom also a lot of anxiety. Panic attacks but not very often. No cravings for using the Fentanyl. Suboxone is much better. Such a better alternative to withdraw. No cravings no withdrawals. A little bit of meth, not a big thing for him. Opioids was his preferred drug. No real alcohol or THC problem. No AH/VH or Paranoid thinking. Sleep pretty good. Wake up sometimes can't get back to sleep. Feeling rested. Not having a lot of negative thinking. It's pretty neutral. Last BM Normal. Mental Status BEHAVIOR: Calm and Cooperative EYE CONTACT: avoidant/intermittent. SPEECH: Circumstantial. Not racing. Mild stuttering. AFFECT: Constricted with brightening. MOOD: Mild anxiety ORIENTATION IMPAIRMENT: None MEMORY IMPAIRMENT: None ATTENTION: Fair. Slightly distracted HALLUCINATION: Denies SUICIDALITY: Denies DELUSIONS: Not noted INSIGHT: Fair/Improved. JUDGMENT: Poor Results Of any Diagn. Testing REVIEW OF LABS URINE DRUG SCREEN POSITIVE FENTANYL URINALYSIS NEGATIVE COVID NEGATIVE INFLUENZA A NEGATIVE INFLUENZA B NEGATIVE WBC 9.3 RBC 3.83 HEMOGLOBIN 11.4 HEMATOCRIT 33.2 PLATELETS 274 SODIUM 141 POTASSIUM 3.3 ANION GAP 11 GLUCOSE 89 BUN 18 CREATININE 0.84 CALCIUM 7.9 ALBUMIN 3.5 ALT 13 AST 17 Treatment We will keep meds the same for now. He still has a lot of anxiety. Will think about increase of the Zoloft. SUBOXONE 1 FILM SUBLINGUALLY DAILY ZOLOFT 100MG PO DAILY HYDROXYZINE 50MG Q.6 PO PRN-ANXIETY/AGITATION Monitoring by Staff, Milieu, Group, and Individual counseling as needed -- According to the [place] Suicide Assessment the above named patient is on Q 15 MINUTE CHECKS. [id number] patient does not have a good safety plan for discharge at this time. We are still titrating medications to an effective dose while maintaining a therapeutic environment to prevent decompensation and readmission. REVIEW OF Clinical notes [X ] RN notes [X] PCT documentation [X] SW notes [X] Labs [ X] Medications [X] Care trends/care activity [X] Vitals [X] DISCUSSION WITH dust collector attendant [X] DISCHARGE Moving to Grandmother's home when he discharges. CODING VISIT-PSYCHIATRY Date of Service: Oct 09, 2024 Billing Provider: L[facility] Psych Common Visit Codes: [id number] INP/OBS CARE(Mod) LANE HOOPER Oct 09, 2024 14:31
--- NOTE | 2024-10-09 16:26 | PROGRESS NOTE- Residence ---
Progress Note - Resident Providers to CC Resident Creating Document: STONE MONREAL RES ~ Antibiotic Timeout Antibiotic Ordered?: No Subjective The patient was evaluated at the bedside. Denied medical symptoms. No dizziness today Patient claimed of having a fall yesterday after feeling dizzy and struck his head. He currently has a a small wound on the right lateral end of the eyebrow on his forehead. However, on asking his nurse, she claims that patient had a fall post dizziness on 10/05/24. Objective Vital Signs Date Time Temp Pulse Resp B/P (MAP) Pulse Ox O2 Delivery O2 Flow Rate FiO2 10/09/24 07:38 98.7 70 20 112/65 (81) 99 Room Air Awake , alert, and oriented x4, resting comfortably in the bed, in no acute distress HEENT: Lacerated wound present to the lateral end of the right-sided eyebrow on his forehead, head tremors noted Neck: Trachea midline. Supple, full range of motion, no JVD Cardiac: Regular rhythm, regular rate with no murmurs all over the precordium. Respiratory: Equal breath sounds bilaterally, no tachypnea, no wheezing ,rub or rales, Chest wall is symmetric and without deformity. Gastrointestinal: Abdomen symmetric, non-distended, soft, non-tender, normal bowel sounds x4 quadrant, normoactive, no hepatosplenomegaly Musculoskeletal: No pedal edema, no cyanosis Neurological: Speech is clear, alert, and oriented x 4. No motor or sensory deficit, deep tendon reflexes normal, cerebellar intact. Cranial nerves II-XII intact. Skin: Warm and dry Assessment Assessment 23-year-old male patient admitted to [facility] due to suicidal ideation. Plan Plan Suicidal ideation: Sertraline 75 mg daily. Hydroxyzine 50 mg q.6 hours PRN for anxiety. Continue management as per Psychiatry. Mild head tremors noted Mechanical fall in hospital Secondary to dizziness, probably secondary to dehydration Ordered a CT head Basic lab CMP/CBC/lactic acid ordered Orthostatic vitals ordered Patient claimed of having a fall yesterday after feeling dizzy and struck his head. He currently has a a small wound on the right lateral end of the eyebrow on his forehead. However, on asking his nurse, she claims that patient had a fall post dizziness on 10/07/2024, reviewed nursing charts EKG ordered Vitals: 112/65 blood pressure, 70 beats per minute heart rate continue wound care The patient currently denies any medical complaints. Disposition: Hospitalist team will continue to follow Stone Monreal MD Internal Medicine Resident, PGY-1 Date of Service: Oct 09, 2024 Billing Provider: CLARISA ISAAC MD, GAURAV, RES Oct 09, 2024 16:26
--- NOTE | 2024-10-09 17:25 | ELECTROCARDIOGRAPH REPORT ---
[facility] Test Date: 2024-10-09 Test Time: 17:22:43 Pat Name: MARK VENTURA Department: [facility]ULT Patient ID: [facility]-[id number] Room: 324 B Gender: M Coil Winder Hand: : 2000 Requested By: STONE BULLOCK Order Number: [id number] Reading MD: Measurements Intervals [place] Rate: 61 P: 66 WA: 175 QRS: 84 QRSD: 106 T: 85 QT: 409 QTc: 412 Interpretive Statements Sinus rhythm Please click the below link to view image of tracing.
[2024-10-09 17:28] LABS: ALANINE AMINOTRANSFERASE 24 U/L (12-78); ALBUMIN 3.1 G/DL (3.4-5.0); ALKALINE PHOSPHATASE 78 IU/L (46-116); ANION GAP 5 (8-16); ASPARTATE AMINO TRANSFERASE 10 U/L (10-37); BILIRUBIN,TOTAL 0.1 MG/DL (0.1-1.0); BLOOD UREA NITROGEN 22 MG/DL (7-18); BUN/CREATININE RATIO 25.9 (10.0-20.0); CALCIUM 8.3 MG/DL (8.5-10.1); CHLORIDE 106 MMOL/L (99-107); CREATININE 0.85 MG/DL (0.60-1.10); GLUCOSE 86 MG/DL (70-104); POTASSIUM 4.5 MMOL/L (3.5-5.1); SODIUM 143 MMOL/L (135-145); TOTAL CARBON DIOXIDE 31.9 MMOL/L (24-32); TOTAL PROTEIN 6.2 G/DL (6.4-8.2); eCRCL 154 ML/MIN; eGFR > 90 ML/MIN
[2024-10-09 17:30] VITALS: BP_SYST 101; BP_SYST 116; BP_SYST 90; BP_DIAS 61; BP_DIAS 65; BP_DIAS 70; PULSE 118; PULSE 67; PULSE 86
[2024-10-09 17:32] LABS: BASOPHILS # (AUTO) 0.1 X10'3 (0-0.2); BASOPHILS % (AUTO) 0.8 % (0-1); EOSINOPHILS # (AUTO) 0.4 X10'3 (0-0.9); EOSINOPHILS % (AUTO) 5.6 % (0-6); HEMATOCRIT 39.6 % (42.0-52.0); HEMOGLOBIN 13.4 g/dl (14.0-17.9); LYMPHOCYTES # (AUTO) 1.6 X10'3 (1.1-4.8); LYMPHOCYTES % (AUTO) 22.3 % (21-51); MEAN CORPUSCULAR HEMOGLOBIN 29.3 PG (27.0-31.0); MEAN CORPUSCULAR HGB CONC 33.9 g/dL (33.0-36.5); MEAN CORPUSCULAR VOLUME 86.3 FL (78-98); MEAN PLATELET VOLUME 7.5 FL (7.4-10.4); MONOCYTES # (AUTO) 0.6 X10'3 (0-0.9); NEUTROPHILS # (AUTO) 4.5 X10'3 (1.8-7.7); NEUTROPHILS % (AUTO) 63.3 % (42-75); PLATELET COUNT 289 X10'3 (140-440); RED BLOOD COUNT 4.59 X10'6 (4.70-6.10); RED CELL DISTRIBUTION WIDTH 14.3 % (11.5-14.5)
[2024-10-09] MEDS: normal saline 1000ml 1,000 ML IV SCH (18:50)
[2024-10-09 19:00] VITALS: BP 126/68; PULSE 88; RESP 18; TEMP 98.4; O2SAT 98
[2024-10-09 20:00] VITALS: BP_SYST 120; BP_SYST 126; BP_SYST 90; BP_DIAS 61; BP_DIAS 62; BP_DIAS 68; PULSE 122; PULSE 73; PULSE 91
--- NOTE | 2024-10-09 20:36 | RADIOLOGY REPORT ---
Clinical History Mechanical fall Comparison CT HEAD on 11/04/2020, 213 images. Technique: Contiguous axial CT images of the head without intravenous contrast administration. Coron al and sagittal reformation was performed. All CT scans at this medical facility are performed using dose modulation techniques as appropriate t o a performed exam including the following: Automated exposure control was utilized; adjustment of th e mA and/or kV according to patient size; and use of iterative reconstruction technique. All CT studies are reported to the Dose Index Registry of the [employer]. Without Contrast Radiation Dose: CTDI (mGy): 65.37; DLP (mGy-cm): 1232.91 MARK VENTURA, [id number] Findings: The brain parenchyma shows normal huertas-white matter differentiation without any mass, bleed, edema, o r herniation. The sulci, cisterns, and ventricles are intact. No extra-axial fluid collection or sk ull lesion is present. The imaged portions of the paranasal sinuses and mastoid air cells are clear. Both orbits are grossl y normal. Impression: 1. No acute intracranial abnormality. This report was electronically signed by Mir Alexander MD on 10/09/2024 8:32:54 PM.
[2024-10-10 00:14] VITALS: BP_SYST 104; BP_SYST 90; BP_SYST 96; BP_DIAS 54; BP_DIAS 60; PULSE 102; PULSE 67; PULSE 74
[2024-10-10 07:30] VITALS: BP_SYST 112; BP_SYST 124; BP_SYST 86; BP_DIAS 68; BP_DIAS 72; BP_DIAS 78; PULSE 59; PULSE 84; PULSE 99; RESP 15; TEMP 97.3; O2SAT 97
[2024-10-10] MEDS: normal saline 1000ml 1,000 ML IV ONE (08:02)
--- NOTE | 2024-10-10 11:29 | PROGRESS NOTE ---
Progress Note Dictate Providers to CC ~ Central Line/PICC still needed: N\A Antibiotic Ordered?: No Objective Vitals Vital Signs Date Time Temp Pulse Resp B/P (MAP) Pulse Ox O2 Delivery O2 Flow Rate FiO2 10/10/24 00:14 67 96/54 (68) 74 104/60 (75) 102 90/60 (70) 10/09/24 19:00 18 98 Room Air 10/09/24 19:00 98.4 Lab Results: 10/09/24 1639 10/09/24 1702 Problem\Assessment\Plan Problems/Diagnosis: (1) Major depress dis, severe (2) Methamphetamine abuse (3) Suicide attempt (4) Opioid abuse Psychiatrist's Progress Note Date of Service: Oct 10, 2024 Notes Mr Aric Serrano is a 23-year-old male was BIB EMS to the [facility] ED with SI and attempt by hanging. His girlfriend saw him trying to hang himself in the park where he reportedly hung from the rope for approximately 2 minutes was confused as he fell to the ground. EMS put him in a collar and patient was complaining of neck pain. No intentional ingestion has been having suicidal thoughts for the past few days. Reports he had a g of meth ingestion prior to his suicide attempt. CHART REVIEW Pt attempted suicide by hanging himself, girlfriend cut him down. Pt has a long hx of mh since he witnessed his uncles murder. Pt also has a substance us issue for the last 5 years. Pt is homeless but has a supportive grandmother. Patient is a tall thin male. Short black hair. Short scruffy facial hair. Has noticeable self inflicted bruising around his neck. Small scab above his rt eyebrown from fall. Wearing green scrubs. Unsteady on feet. Fell the other day, but not since then. Had two bolus of fluids for his BP. No depression or sadness. Not too much anxiety. 'not today.' 'minimal.' 'Not like it was the past couple of days.' Not irritable. No AH/VH or paranoid thinking. Slept okay. A little less d/t having to do the IV last night. Last BM yesterday. Normal. Mental Status BEHAVIOR: Calm and Cooperative EYE CONTACT: avoidant/intermittent. SPEECH: Circumstantial. Not racing. Mild stuttering. AFFECT: Constricted with brightening. MOOD: Mild anxiety ORIENTATION IMPAIRMENT: None MEMORY IMPAIRMENT: None ATTENTION: Fair. Slightly distracted HALLUCINATION: Denies SUICIDALITY: Denies DELUSIONS: Not noted INSIGHT: Fair/Improved. JUDGMENT: Poor Results Of any Diagn. Testing REVIEW OF LABS URINE DRUG SCREEN POSITIVE FENTANYL URINALYSIS NEGATIVE COVID NEGATIVE INFLUENZA A NEGATIVE INFLUENZA B NEGATIVE WBC 9.3 RBC 3.83 HEMOGLOBIN 11.4 HEMATOCRIT 33.2 PLATELETS 274 SODIUM 141 POTASSIUM 3.3 ANION GAP 11 GLUCOSE 89 BUN 18 CREATININE 0.84 CALCIUM 7.9 ALBUMIN 3.5 ALT 13 AST 17 Treatment TRY decrease suboxone to see if helps with the orthostatic hypotension. He has had two bolus of NS and still hypotensive. Will monitor for ASE of increased cravings with decreased dose. Could also try taking 1/2 BID of the suboxone. SUBOXONE 1/2 FILM SUBLINGUALLY DAILY-- ZOLOFT 100MG PO DAILY HYDROXYZINE 50MG Q.6 PO PRN-ANXIETY/AGITATION Monitoring by Staff, Milieu, Group, and Individual counseling as needed -- According to the [place] Suicide Assessment the above named patient is on Q 15 MINUTE CHECKS. [id number]-The patient does not have a good safety plan for discharge at this time. We are still titrating medications to an effective dose while maintaining a therapeutic environment to prevent decompensation and readmission. REVIEW OF Clinical notes [X ] RN notes [X] PCT documentation [X] SW notes [X] Labs [ X] Medications [X] Care trends/care activity [X] Vitals [X] DISCUSSION WITH floor covering layer [X] DISCHARGE Moving to Grandmother's home when he discharges. Need to make sure he has a suboxone provider, psychiatry and drug and alcohol counseling set up for him in the [facility]. CODING VISIT-PSYCHIATRY Date of Service: Oct 10, 2024 Billing Provider: L[facility] Psych Common Visit Codes: [id number] INP/OBS CARE(Mod) L[facility] HOOPER Oct 10, 2024 11:29
[2024-10-10 12:34] VITALS: BP_SYST 110; BP_SYST 117; BP_SYST 96; BP_DIAS 56; BP_DIAS 62; BP_DIAS 67; PULSE 58; PULSE 68; PULSE 94
[2024-10-10 19:00] VITALS: RESP 16; O2SAT 99
[2024-10-10 20:00] VITALS: BP_SYST 0; BP_SYST 120; BP_DIAS 0; BP_DIAS 56; PULSE 0; PULSE 72; RESP 16; TEMP 97.6
[2024-10-11 07:25] VITALS: BP_SYST 114; BP_SYST 129; BP_DIAS 55; BP_DIAS 88; PULSE 78; PULSE 86
[2024-10-11] MEDS ORDERED: buprenorphine/naloxone 8MG-2MG SUBlingual film SL SCH (08:00)
[2024-10-11 08:20] VITALS: BP 98/68; PULSE 84; RESP 16; TEMP 98.7; O2SAT 100
[2024-10-11 08:26] VITALS: RESP 16; O2SAT 100
[2024-10-11] MEDS: buprenorphine/naloxone 2-0.5mg sublingual tablet SL SCH (08:35)
--- NOTE | 2024-10-11 12:00 | PROGRESS NOTE ---
Progress Note Dictate Providers to CC ~ Central Line/PICC still needed: N\\A Antibiotic Ordered?: No MRSA Education MRSA Education Provided to pt: No Objective Vitals Vital Signs Date Time Temp Pulse Resp B/P (MAP) Pulse Ox O2 Delivery O2 Flow Rate FiO2 10/11/24 08:26 16 100 Room Air 10/11/24 08:20 98.7 84 98/68 (78) Lab Results: 10/09/24 1639 10/09/24 1702 Psychiatrist's Progress Note Date of Service: Oct 11, 2024 Notes CHART REVIEW Pt attempted suicide by hanging himself, gf cut him down. Pt has a long hx of mh since he witnessed his uncles murder. Pt also has a substance us issue for the last 5 years. Pt is homeless but has a supportive grandmother. ASSESSMENT The patient is interviewed in observation room. Patient seen actively resting in bed with eyes closed. The patient endorses "I am doing alright." The patient endorses no worsening mental health symptoms. Patient endorses he would not go to rehab right after discharge. Denies SI. Denies HI. Denies AVH. Patient endorses adequate sleep and food intake. She endorses adequate sleep and food intake. The patient is stable no acute distress noted. The patient is calm, cooperative, and engaged during session. Per staff report no behavior issues. per staff report medication compliant. Per staff report patient has participating in group/unit activities. Will continue daily assessment and adjusting treatment as needed. Closely monitor behavior and response to medication during hospitalization. Results Of any Diagn. Testing REVIEW OF LABS URINE DRUG SCREEN POSITIVE FENTANYL URINALYSIS NEGATIVE COVID NEGATIVE INFLUENZA A NEGATIVE INFLUENZA B NEGATIVE WBC 9.3 RBC 3.83 HEMOGLOBIN 11.4 HEMATOCRIT 33.2 PLATELETS 274 SODIUM 141 POTASSIUM 3.3 ANION GAP 11 GLUCOSE 89 BUN 18 CREATININE 0.84 CALCIUM 7.9 ALBUMIN 3.5 ALT 13 AST 17 Appearnace: Other Speech: Other (CIRCUMSTANTIAL) Eye Contact: Other (INTERMITTENT) Motor Activity: Normal Affect: Constricted Orientation Impairment: None Memory Impairment: None Attention: Normal Hallucinations: None Other: None Suicidality: None Homicidality: None Delusions: None Behavior: Cooperative Insight: Fair, Poor Judgment: Poor Treatment SUBOXONE 1 FILM SUBLINGUALLY DAILY Increase ZOLOFT 75MG PO DAILY HYDROXYZINE 50MG Q.6 PO PRN-ANXIETY/AGITATION Monitoring by Staff, Milieu, Group, and Individual counseling as needed -- According to the [place] Suicide Assessment the above named patient is on Q 15 MINUTE CHECKS. [id number]-The patient does not have a good safety plan for discharge at this time. We are still titrating medications to an effective dose while maintaining a therapeutic environment to prevent decompensation and readmission. REVIEW OF Clinical notes [X ] RN notes [X] PCT documentation [X] SW notes Labs [ X] Medications [X] Care trends/care activity [X] Vitals [X] DISCUSSION WITH cutter operator helper [X] Staff SW [X] Treatment Team [X] Discharge UNSURE AT THIS TIME. DISCHARGE HOME ONCE STABLE CODING VISIT-PSYCHIATRY Date of Service: Oct 11, 2024 Billing Provider: JACKELYN MORGAN APRN Psych Common Visit Codes: [id number] INP/OBS CARE(Mod) JACKELYN MORGAN APRN Oct 11, 2024 12:00
[2024-10-11 12:21] VITALS: BP_SYST 107; BP_SYST 109; BP_SYST 121; BP_DIAS 64; BP_DIAS 70; BP_DIAS 74; PULSE 100; PULSE 57; PULSE 70
--- NOTE | 2024-10-11 13:56 | PROGRESS NOTE- Residence ---
Progress Note - Resident Providers to CC Resident Creating Document: STONE MONREAL, JENY ~ Antibiotic Timeout Antibiotic Ordered?: No Subjective The patient was evaluated at the bedside. Denied medical symptoms. No dizziness today Objective Vital Signs Date Time Temp Pulse Resp B/P (MAP) Pulse Ox O2 Delivery O2 Flow Rate FiO2 10/11/24 12:21 57 121/70 (87) 70 107/74 (85) 100 109/64 (79) 10/11/24 08:26 16 100 Room Air 10/11/24 08:20 98.7 Result Diagram: 10/09/24 1639 10/09/24 1702 Awake , alert, and oriented x4, resting comfortably in the bed, in no acute distress HEENT: Healing wound present to the lateral end of the right-sided eyebrow on his forehead, head tremors noted Neck: Trachea midline. Supple, full range of motion, no JVD Cardiac: Regular rhythm, regular rate with no murmurs all over the precordium. Respiratory: Equal breath sounds bilaterally, no tachypnea, no wheezing ,rub or rales, Chest wall is symmetric and without deformity. Gastrointestinal: Abdomen symmetric, non-distended, soft, non-tender, normal bowel sounds x4 quadrant, normoactive, no hepatosplenomegaly Musculoskeletal: No pedal edema, no cyanosis Neurological: Speech is clear, alert, and oriented x 4. No motor or sensory deficit, deep tendon reflexes normal, cerebellar intact. Cranial nerves II-XII intact. Skin: Warm and dry Advance Care Planning Advanced Care plannin - 30 Minutes Assessment Assessment 23-year-old male patient admitted to [facility] due to suicidal ideation. Plan Plan Suicidal ideation: Sertraline 75 mg daily. Hydroxyzine 50 mg q.6 hours PRN for anxiety. Continue management as per Psychiatry. Mild head tremors noted Mechanical fall in hospital Secondary to dizziness, probably secondary to dehydration CT head negative CMP/CBC/lactic acid: Within normal limits Orthostatic vitals positive the 1st day, patient was seen 1 L bolus IV NS, continue monitoring orthostatics Patient claimed of having a fall yesterday after feeling dizzy and struck his head. He currently has a a small wound on the right lateral end of the eyebrow on his forehead. However, on asking his nurse, she claims that patient had a fall post dizziness on 10/07/2024, reviewed nursing charts EKG normal Wound: Healed The patient currently denies any medical complaints. Disposition: Hospitalist team will continue to follow Stone Monreal MD Internal Medicine Resident, PGY-1 Date of Service: Oct 11, 2024 Billing Provider: CLARISA ISAAC MD, GAURAV, RES Oct 11, 2024 13:56
[2024-10-11 19:00] VITALS: RESP 14; O2SAT 99
[2024-10-11 20:00] VITALS: BP_SYST 108; BP_SYST 115; BP_SYST 99; BP_DIAS 53; BP_DIAS 69; BP_DIAS 74; PULSE 101; PULSE 68; PULSE 79; RESP 14; TEMP 98.3; O2SAT 99
[2024-10-12 07:14] VITALS: BP_SYST 105; BP_SYST 108; BP_SYST 117; BP_DIAS 61; BP_DIAS 64; BP_DIAS 75; PULSE 104; PULSE 68; PULSE 85
[2024-10-12 07:15] VITALS: BP 119/67; PULSE 60; RESP 14; TEMP 98.1; O2SAT 99
[2024-10-12 08:23] VITALS: RESP 14; O2SAT 99
--- NOTE | 2024-10-12 12:37 | PROGRESS NOTE ---
Progress Note Dictate Providers to CC ~ Central Line/PICC still needed: N\\A Antibiotic Ordered?: No MRSA Education MRSA Education Provided to pt: No Objective Vitals Vital Signs Date Time Temp Pulse Resp B/P (MAP) Pulse Ox O2 Delivery O2 Flow Rate FiO2 10/12/24 08:23 14 99 Room Air 10/12/24 07:15 98.1 60 119/67 (84) Lab Results: 10/09/24 1639 10/09/24 1702 Psychiatrist's Progress Note Date of Service: Oct 12, 2024 Notes CHART REVIEW Pt attempted suicide by hanging himself, gf cut him down. Pt has a long hx of mh since he witnessed his uncles murder. Pt also has a substance us issue for the last 5 years. Pt is homeless but has a supportive grandmother. ASSESSMENT The patient is interviewed in observation room. Patient seen actively returning from taking a shower. The patient endorses "I am doing pretty good." The patient endorses no worsening mental health symptoms. Denies SI. Denies HI. Denies AVH. Patient endorses adequate sleep and food intake. She endorses adequate sleep and food intake. The patient is stable no acute distress noted. The patient is calm, cooperative, and engaged during session. Per staff report no behavior issues. per staff report medication compliant. Per staff report patient has participating in group/unit activities. Will continue daily assessment and adjusting treatment as needed. Closely monitor behavior and response to medication during hospitalization. Results Of any Diagn. Testing REVIEW OF LABS URINE DRUG SCREEN POSITIVE FENTANYL URINALYSIS NEGATIVE COVID NEGATIVE INFLUENZA A NEGATIVE INFLUENZA B NEGATIVE WBC 9.3 RBC 3.83 HEMOGLOBIN 11.4 HEMATOCRIT 33.2 PLATELETS 274 SODIUM 141 POTASSIUM 3.3 ANION GAP 11 GLUCOSE 89 BUN 18 CREATININE 0.84 CALCIUM 7.9 ALBUMIN 3.5 ALT 13 AST 17 Appearnace: Other Speech: Other (CIRCUMSTANTIAL) Eye Contact: Other (INTERMITTENT) Motor Activity: Normal Affect: Constricted Orientation Impairment: None Memory Impairment: None Attention: Normal Hallucinations: None Other: None Suicidality: None Homicidality: None Delusions: None Behavior: Cooperative Insight: Fair, Poor Judgment: Poor Treatment BUPRENORPHINE/NALOXONE 2 TABS SUBLINGUAL DAILY ZOLOFT 100MG PO DAILY HYDROXYZINE 50MG Q.6 PO PRN-ANXIETY/AGITATION Monitoring by Staff, Milieu, Group, and Individual counseling as needed -- According to the [place] Suicide Assessment the above named patient is on Q 15 MINUTE CHECKS. [id number]-The patient does not have a good safety plan for discharge at this time. We are still titrating medications to an effective dose while maintaining a therapeutic environment to prevent decompensation and readmission. REVIEW OF Clinical notes [X ] RN notes [X] PCT documentation [X] SW notes Labs [ X] Medications [X] Care trends/care activity [X] Vitals [X] DISCUSSION WITH skirt panel assembler [X] Staff SW [X] Treatment Team [X] Discharge UNSURE AT THIS TIME. DISCHARGE HOMELESS CODING VISIT-PSYCHIATRY Date of Service: Oct 12, 2024 Billing Provider: JACKELYN MORGAN APRN Psych Common Visit Codes: [id number] INP/OBS CARE(Mod) JACKELYN MORGAN APRN Oct 12, 2024 12:37
[2024-10-12 20:00] VITALS: BP_SYST 110; BP_SYST 112; BP_SYST 116; BP_DIAS 60; BP_DIAS 61; BP_DIAS 68; PULSE 71; PULSE 76; PULSE 80; RESP 18; TEMP 98.1; O2SAT 99
[2024-10-12 20:48] VITALS: RESP 18; O2SAT 99
[2024-10-13 07:00] VITALS: RESP 12; O2SAT 96
[2024-10-13 08:00] VITALS: BP 127/76; PULSE 60; RESP 12; TEMP 98; O2SAT 96
--- NOTE | 2024-10-13 09:55 | PROGRESS NOTE ---
Progress Note Dictate Providers to CC ~ Central Line/PICC still needed: N\\A Antibiotic Ordered?: No MRSA Education MRSA Education Provided to pt: No Objective Vitals Vital Signs Date Time Temp Pulse Resp B/P (MAP) Pulse Ox O2 Delivery O2 Flow Rate FiO2 10/13/24 08:00 98.0 60 12 127/76 (93) 96 Room Air Lab Results: 10/09/24 1639 10/09/24 1702 Psychiatrist's Progress Note Date of Service: Oct 13, 2024 Notes CHART REVIEW Pt attempted suicide by hanging himself, gf cut him down. Pt has a long hx of mh since he witnessed his uncles murder. Pt also has a substance us issue for the last 5 years. Pt is homeless but has a supportive grandmother. ASSESSMENT The patient is interviewed in observation room. Patient seen actively walking in hallway. The patient endorse "Good." The patient endorses no worsening mental health symptoms. Denies SI. Denies HI. Denies AVH. Patient endorses adequate sleep and food intake. The patient endorses adequate sleep and food intake. The patient is stable no acute distress noted. The patient is calm, cooperative, and engaged during session. The patient endorses he has no plans to get into drug rehab at this time. Per staff report no behavior issues. per staff report medication compliant. Per staff report patient has participating in group/unit activities. Will continue daily assessment and adjusting treatment as needed. Closely monitor behavior and response to medication during hospitalization. SW to follow up with [facility] to inquire about possible vegetable picker on Friday for discharge. The patient noted with positive orthostatic BPs. We will decrease buprenorphine/naloxone. Nurse to follow up with medical team regarding low blood pressure. Results Of any Diagn. Testing REVIEW OF LABS URINE DRUG SCREEN POSITIVE FENTANYL URINALYSIS NEGATIVE COVID NEGATIVE INFLUENZA A NEGATIVE INFLUENZA B NEGATIVE WBC 9.3 RBC 3.83 HEMOGLOBIN 11.4 HEMATOCRIT 33.2 PLATELETS 274 SODIUM 141 POTASSIUM 3.3 ANION GAP 11 GLUCOSE 89 BUN 18 CREATININE 0.84 CALCIUM 7.9 ALBUMIN 3.5 ALT 13 AST 17 Appearnace: Other Speech: Other (CIRCUMSTANTIAL) Eye Contact: Normal Motor Activity: Normal Affect: Constricted Orientation Impairment: None Memory Impairment: None Attention: Normal Hallucinations: None Other: None Suicidality: None Homicidality: None Delusions: None Behavior: Cooperative Insight: Fair, Poor Judgment: Poor Treatment Decrease BUPRENORPHINE/NALOXONE 1 TABS SUBLINGUAL DAILY ZOLOFT 100MG PO DAILY HYDROXYZINE 50MG Q.6 PO PRN-ANXIETY/AGITATION Monitoring by Staff, Milieu, Group, and Individual counseling as needed -- According to the [place] Suicide Assessment the above named patient is on Q 15 MINUTE CHECKS. [id number]-The patient does not have a good safety plan for discharge at this time. We are still titrating medications to an effective dose while maintaining a therapeutic environment to prevent decompensation and readmission. REVIEW OF Clinical notes [X ] RN notes [X] PCT documentation [X] SW notes Labs [ X] Medications [X] Care trends/care activity [X] Vitals [X] DISCUSSION WITH plumber and tinner [X] Staff SW [X] Treatment Team [X] Discharge DISCHARGE ON 10/18/2024, HOMELESS CODING VISIT-PSYCHIATRY Date of Service: Oct 13, 2024 Billing Provider: JACKELYN MORGAN APRN Psych Common Visit Codes: [id number] INP/OBS CARE(Low) JACKELYN MORGAN APRN Oct 13, 2024 09:55
[2024-10-13 11:30] VITALS: BP_SYST 111; BP_SYST 113; BP_SYST 67; BP_DIAS 41; BP_DIAS 59; PULSE 128; PULSE 63; PULSE 85
[2024-10-13 15:20] VITALS: BP 106/64; PULSE 95
[2024-10-13 19:00] VITALS: RESP 14; O2SAT 99
[2024-10-13 20:00] VITALS: BP_SYST 102; BP_SYST 114; BP_SYST 96; BP_SYST 99; BP_DIAS 57; BP_DIAS 63; BP_DIAS 64; BP_DIAS 66; PULSE 100; PULSE 65; PULSE 71; PULSE 80; RESP 14; TEMP 98.3; O2SAT 99
--- NOTE | 2024-10-13 21:59 | PROGRESS NOTE- Residence ---
Progress Note - Resident Providers to CC Resident Creating Document: JOSE RINALDI RES ~ Antibiotic Timeout Antibiotic Ordered?: No Subjective The patient was evaluated at the bedside. Denied medical symptoms. Objective Vital Signs Date Time Temp Pulse Resp B/P (MAP) Pulse Ox O2 Delivery O2 Flow Rate FiO2 10/13/24 20:00 65 102/57 (72) 71 114/66 (82) 100 99/63 (75) 10/13/24 08:00 98.0 12 96 Room Air Result Diagram: 10/09/24 1639 10/09/24 1702 General: Awake and Alert, no acute distress. HEENT: Conjunctiva pink, Sclera clear, Mucus Membranes moist. Resp: Bilateral lung sounds are clear. Heart: Regular Rate and rhythm, normal S1 and S2 without murmur, rub or gallop. Abdomen: no tenderness, no guarding, no rigidity, bowel sounds heard Extremities: No cyanosis,clubbing or edema. LABOR EMPLOYMENT ASSOCIATE: Conscious, coherent, oriented x3. No motor or sensory deficits. No cranial nerve deficits Skin: Warm and Dry. No purpura noted, Assessment Assessment 23-year-old male patient admitted to [facility] due to suicidal ideation. Plan Plan Suicidal ideation: Sertraline 75 mg daily. Hydroxyzine 50 mg q.6 hours PRN for anxiety. Continue management as per Psychiatry. Mild head tremors noted Mechanical fall in hospital Secondary to dizziness, probably secondary to dehydration CT head negative CMP/CBC/lactic acid: Within normal limits Orthostatic vitals positive the 1st day, patient was seen 1 L bolus IV NS, continue monitoring orthostatics Patient claimed of having a fall yesterday after feeling dizzy and struck his head. He currently has a a small wound on the right lateral end of the eyebrow on his forehead. However, on asking his nurse, she claims that patient had a fall post dizziness on 10/07/2024, reviewed nursing charts EKG normal Wound: Healed The patient currently denies any medical complaints. Disposition: Hospitalist team will continue to follow Jose Rinaldi M.D Internal Medicine Resident, PGY-1 Date of Service: Oct 13, 2024 Billing Provider: JORJE BOLTON MD Common Visit Codes: [id number] INP/OBS CARE(MOD) JOSE RINALDI RES Oct 13, 2024 21:59 JORJE BOLTON MD October 14, 2024 06:47
[2024-10-14] VITALS (7 sets, daily range): BP systolic 106–128; BP diastolic 59–75; PULSE 53–133; RESP 14–16; TEMP 97.8–98.4; O2SAT 80–100
[2024-10-14] MEDS: buprenorphine/naloxone 2-0.5mg sublingual tablet SL SCH (07:40)
--- NOTE | 2024-10-14 08:21 | PROGRESS NOTE ---
Progress Note Dictate Providers to CC ~ Central Line/PICC still needed: N\\A Antibiotic Ordered?: No MRSA Education MRSA Education Provided to pt: No Objective Vitals Vital Signs Date Time Temp Pulse Resp B/P (MAP) Pulse Ox O2 Delivery O2 Flow Rate FiO2 10/13/24 20:00 98.3 80 14 96/64 (75) 99 Room Air Counseling Services Smoking & Tobacco Cessation: > 10 Minutes Problem\\Assessment\\Plan Problems/Diagnosis: (1) Major depress dis, severe (2) Methamphetamine abuse (3) Suicide attempt (4) Opioid abuse Psychiatrist's Progress Note Date of Service: October 14, 2024 Notes CHART REVIEW Pt attempted suicide by hanging himself, gf cut him down. Pt has a long hx of mh since he witnessed his uncles murder. Pt also has a substance us issue for the last 5 years. Pt is homeless but has a supportive grandmother. ASSESSMENT The patient is interviewed in observation room. Patient seen actively sitting edge of bed. The patient endorse "I am doing alright." The patient endorses when he discharges he will go to his grandmothers house in [place]. The patient endorses he has no decisions about rehab "yet." The patient endorses no worsening mental health symptoms. Denies SI. Denies HI. Denies AVH. Patient endorses adequate sleep and food intake. The patient endorses adequate sleep and food intake. The patient is stable no acute distress noted. The patient is calm, cooperative, and engaged during session. . Per staff report no behavior issues. per staff report medication compliant. Per staff report patient has participating in group/unit activities. The patient has shown some improvement since admission. Will continue daily assessment and adjusting treatment as needed. Closely monitor behavior and response to medication during hospitalization. Results Of any Diagn. Testing REVIEW OF LABS URINE DRUG SCREEN POSITIVE FENTANYL URINALYSIS NEGATIVE COVID NEGATIVE INFLUENZA A NEGATIVE INFLUENZA B NEGATIVE WBC 9.3 RBC 3.83 HEMOGLOBIN 11.4 HEMATOCRIT 33.2 PLATELETS 274 SODIUM 141 POTASSIUM 3.3 ANION GAP 11 GLUCOSE 89 BUN 18 CREATININE 0.84 CALCIUM 7.9 ALBUMIN 3.5 ALT 13 AST 17 Appearnace: Other Speech: Other (CIRCUMSTANTIAL) Eye Contact: Other (INTERMITTENT) Motor Activity: Normal Affect: Constricted Orientation Impairment: None Memory Impairment: None Attention: Normal Hallucinations: None Other: None Suicidality: None Homicidality: None Delusions: None Behavior: Cooperative Insight: Fair, Poor Judgment: Poor Treatment BUPRENORPHINE/NALOXONE 1 TABS SUBLINGUAL DAILY ZOLOFT 100MG PO DAILY HYDROXYZINE 50MG Q.6 PO PRN-ANXIETY/AGITATION Monitoring by Staff, Milieu, Group, and Individual counseling as needed -- According to the [place] Suicide Assessment the above named patient is on Q 15 MINUTE CHECKS. [id number]-The patient does not have a good safety plan for discharge at this time. We are still titrating medications to an effective dose while maintaining a therapeutic environment to prevent decompensation and readmission. REVIEW OF Clinical notes [X ] RN notes [X] PCT documentation [X] SW notes Labs [ X] Medications [X] Care trends/care activity [X] Vitals [X] DISCUSSION WITH mixer wet pour [X] Staff SW [X] Treatment Team [X] Discharge DISCHARGE ON 10/18/2024, HOMELESS CODING VISIT-PSYCHIATRY Date of Service: October 14, 2024 Billing Provider: JACKELYN MORGAN APRN Psych Common Visit Codes: [id number] INP/OBS CARE(Mod) JACKELYN MORGAN APRN October 14, 2024 08:21
[2024-10-15 07:00] VITALS: RESP 15; O2SAT 100
[2024-10-15 08:00] VITALS: BP_SYST 101; BP_SYST 104; BP_SYST 115; BP_DIAS 53; BP_DIAS 63; PULSE 70; PULSE 86; RESP 16; TEMP 97.3; O2SAT 100
--- NOTE | 2024-10-15 08:31 | PROGRESS NOTE ---
Progress Note Dictate Providers to CC ~ Central Line/PICC still needed: N\\A Antibiotic Ordered?: No MRSA Education MRSA Education Provided to pt: No Objective Vitals Vital Signs Date Time Temp Pulse Resp B/P (MAP) Pulse Ox O2 Delivery O2 Flow Rate FiO2 10/14/24 20:48 98.4 80 16 106/70 (82) 100 10/14/24 19:00 Room Air Problem\\Assessment\\Plan Problems/Diagnosis: (1) Major depress dis, severe (2) Methamphetamine abuse (3) Suicide attempt (4) Opioid abuse Psychiatrist's Progress Note Date of Service: October 15, 2024 Notes CHART REVIEW Pt attempted suicide by hanging himself, gf cut him down. Pt has a long hx of mh since he witnessed his uncles murder. Pt also has a substance us issue for the last 5 years. Pt is homeless but has a supportive grandmother. ASSESSMENT The patient is interviewed in observation room. Patient seen actively walking in room. The patient endorse "Okay." The patient endorses he never had BP issues before and he havent seen a physicans in several years. "I been on Suboxone before and never had any issues that I remember." The patient endorses no worsening mental health symptoms. Denies SI. Denies HI. Denies AVH. Patient endorses adequate sleep and food intake. The patient endorses adequate sleep and food intake. The patient is stable no acute distress noted. The patient is calm, cooperative, and engaged during session. . Per staff report no behavior issues. per staff report medication compliant. Per staff report patient has participating in group/unit activities. The patient has shown some improvement since admission. Will continue daily assessment and adjusting treatment as needed. Closely monitor behavior and response to medication during hospitalization. Results Of any Diagn. Testing REVIEW OF LABS URINE DRUG SCREEN POSITIVE FENTANYL URINALYSIS NEGATIVE COVID NEGATIVE INFLUENZA A NEGATIVE INFLUENZA B NEGATIVE WBC 9.3 RBC 3.83 HEMOGLOBIN 11.4 HEMATOCRIT 33.2 PLATELETS 274 SODIUM 141 POTASSIUM 3.3 ANION GAP 11 GLUCOSE 89 BUN 18 CREATININE 0.84 CALCIUM 7.9 ALBUMIN 3.5 ALT 13 AST 17 Treatment We will discontinue BUPRENORPHINE/NALOXONE due positive orthostatics. We will start naltrexone one 10/16/2024 since patient already had his BUPRENORPHINE/NALO XONE this a.m. Discontinue BUPRENORPHINE/NALOXONE 1 TABS SUBLINGUAL DAILY Decrease ZOLOFT 75MG PO DAILY HYDROXYZINE 50MG Q.6 PO PRN-ANXIETY/AGITATION Initiate NALTREXONE 50MG PO QHS Monitoring by Staff, Milieu, Group, and Individual counseling as needed -- According to the [place] Suicide Assessment the above named patient is on Q 15 MINUTE CHECKS. VOLUNTARY REVIEW OF Clinical notes [X ] RN notes [X] PCT documentation [X] SW notes Labs [ X] Medications [X] Care trends/care activity [X] Vitals [X] DISCUSSION WITH carpet sewer [X] Staff SW [X] Treatment Team [X] Discharge DISCHARGE ON 10/18/2024, HOMELESS CODING VISIT-PSYCHIATRY Date of Service: October 15, 2024 Billing Provider: JACKELYN MORGAN APRN Psych Common Visit Codes: [id number] INP/OBS CARE(Low) JACKELYN MORGAN APRN October 15, 2024 08:31
--- NOTE | 2024-10-15 17:52 | PROGRESS NOTE- Residence ---
Progress Note - Resident Providers to CC Resident Creating Document: SRIKANTH ELY RES CC: RASHAUN FERNANDEZ MD ~ Central Line/PICC Necessity: Irritate solution deliver Antibiotic Timeout Antibiotic Ordered?: No Subjective Patient is seen today evening. No complaints noted. He said his blood pressures has been doing okay. Denies any dizziness. Informed the patient to drink more water. Patient said he had been having had tremors for a long time. He thought that might be secondary to concussions he had when he was doing contacts sports, does not know about the family history of tremor Objective Vital Signs Date Time Temp Pulse Resp B/P (MAP) Pulse Ox O2 Delivery O2 Flow Rate FiO2 10/15/24 08:00 97.3 86 16 104/63 (77) 100 Room Air General: Adult male, AAO x4, not in apparent distress Head: Normocephalic with an atraumatic Eyes: Pupils- 3mm, reacting to light, conjunctiva- anicteric Nose and throat: No polyps, septum- normal, no mucosal ulcers Neck: Supple, no lymphadenopathy, no carotid bruit Respiratory: No use of accessory muscles of respiration, Bilateral normal vesiscular breath sounds heard. No wheeze, rhochi or creps Cardiac: S1-S2 heard, rythm regular, no gallop/murmur Abdomen: non distended, no tenderness, no organomegaly, bowel sounds- heard Extremities: no clubbing, no pedal edema, no deformities, peripheral pulses- 2+ Skin: warm and dry, no rash, no purpura Neuro: No focal deficit, gross cranial nerve exam- normal Assessment Assessment 23-year-old male patient admitted to [facility] due to suicidal ideation. Plan Plan Suicidal ideation: Sertraline 75 mg daily. Hydroxyzine 50 mg q.6 hours PRN for anxiety. Continue management as per Psychiatry. Mild head tremors noted Mechanical fall in hospital Secondary to dizziness, probably secondary to dehydration CT head negative CMP/CBC/lactic acid: Within normal limits Orthostatic vitals positive the 1st day, patient was seen 1 L bolus IV NS, continue monitoring orthostatics Recommend adequate hydration Date of Service: October 15, 2024 Billing Provider: RASHAUN FERNANDEZ MD Common Visit Codes: [id number] INP/OBS CARE(LOW) SRIKANTH ELY RES October 15, 2024 17:52 RASHAUN FRENANDEZ MD October 15, 2024 19:55
[2024-10-15 19:00] VITALS: RESP 16; O2SAT 99
[2024-10-15 20:00] VITALS: BP_SYST 114; BP_SYST 115; BP_SYST 122; BP_DIAS 58; BP_DIAS 61; BP_DIAS 68; PULSE 123; PULSE 65; PULSE 69; PULSE 82; RESP 16; TEMP 98; O2SAT 99
[2024-10-15] MEDS: mirtazapine 15mg tablet PO SCH (20:49)
[2024-10-15] MEDS: traZODone 50mg tablet PO PRN (21:51)
[2024-10-16 07:00] VITALS: RESP 12; O2SAT 100
[2024-10-16 08:00] VITALS: BP_SYST 112; BP_SYST 117; BP_SYST 124; BP_SYST 77; BP_DIAS 40; BP_DIAS 58; BP_DIAS 62; BP_DIAS 69; PULSE 144; PULSE 65; PULSE 68; PULSE 89; RESP 12; TEMP 97.9; O2SAT 100
[2024-10-16] MEDS ORDERED: sertraline 50mg tablet PO SCH (08:00)
[2024-10-16] MEDS: sertraline 25mg tablet PO SCH (08:04)
--- NOTE | 2024-10-16 12:37 | PROGRESS NOTE ---
Progress Note Dictate Providers to CC ~ Central Line/PICC still needed: N\\A Antibiotic Ordered?: No MRSA Education MRSA Education Provided to pt: No Objective Vitals Vital Signs Date Time Temp Pulse Resp B/P (MAP) Pulse Ox O2 Delivery O2 Flow Rate FiO2 10/16/24 08:00 97.9 65 12 124/69 (87) 100 Room Air Counseling Services Smoking & Tobacco Cessation: > 10 Minutes Problem\\Assessment\\Plan Problems/Diagnosis: (1) Major depress dis, severe (2) Methamphetamine abuse (3) Suicide attempt (4) Opioid abuse Psychiatrist's Progress Note Date of Service: October 16, 2024 Notes CHART REVIEW Pt attempted suicide by hanging himself, gf cut him down. Pt has a long hx of mh since he witnessed his uncles murder. Pt also has a substance us issue for the last 5 years. Pt is homeless but has a supportive grandmother. ASSESSMENT The patient is interviewed in observation room. Patient seen actively walking in hallway The patient endorse "Alright." The patient endorses no worsening mental health symptoms. The patient denies any dizziness, blurred vision or fatigue. Denies SI. Denies HI. Denies AVH. Patient endorses adequate sleep and food intake. The patient endorses adequate sleep and food intake. The patient is stable no acute distress noted. The patient is calm, cooperative, and engaged during session. . Per staff report no behavior issues. per staff re port medication compliant. Per staff report patient has participating in group/unit activities. The patient has shown some improvement since admission. Will continue daily assessment and adjusting treatment as needed. Closely monitor behavior and response to medication during hospitalization. Results Of any Diagn. Testing REVIEW OF LABS URINE DRUG SCREEN POSITIVE FENTANYL URINALYSIS NEGATIVE COVID NEGATIVE INFLUENZA A NEGATIVE INFLUENZA B NEGATIVE WBC 9.3 RBC 3.83 HEMOGLOBIN 11.4 HEMATOCRIT 33.2 PLATELETS 274 SODIUM 141 POTASSIUM 3.3 ANION GAP 11 GLUCOSE 89 BUN 18 CREATININE 0.84 CALCIUM 7.9 ALBUMIN 3.5 ALT 13 AST 17 Appearnace: Other Speech: Other (CIRCUMSTANTIAL) Eye Contact: Other (INTERMITTENT) Motor Activity: Normal Affect: Full Orientation Impairment: None Memory Impairment: None Attention: Normal Hallucinations: None Other: None Suicidality: None Homicidality: None Delusions: None Behavior: Cooperative Insight: Fair, Poor Judgment: Fair, Poor Treatment BUPRENORPHINE/NALOXONE 1 TABS SUBLINGUAL DAILY ZOLOFT 75MG PO DAILY HYDROXYZINE 50MG Q.6 PO PRN-ANXIETY/AGITATION NALTREXONE 50MG PO QHS Monitoring by Staff, Milieu, Group, and Individual counseling as needed -- According to the [place] Suicide Assessment the above named patient is on Q 15 MINUTE CHECKS. VOLUNTARY REVIEW OF Clinical notes [X ] RN notes [X] PCT documentation [X] SW notes Labs [ X] Medications [X] Care trends/care activity [X] Vitals [X] DISCUSSION WITH director of regional sales [X] Staff SW [X] Treatment Team [X] Discharge DISCHARGE ON 10/18/2024, HOMELESS CODING VISIT-PSYCHIATRY Date of Service: October 16, 2024 Billing Provider: JACKELYN MORGAN APRN Psych Common Visit Codes: [id number] INP/OBS CARE(Low) JACKELYN MORGAN APRN October 16, 2024 12:37
[2024-10-16] MEDS: naltrexone 50mg tablet PO SCH (14:01)
[2024-10-16] MEDS ORDERED: NALT50TA5 PO (16:43)
[2024-10-16] MEDS ORDERED: SERT-432 PO (16:43)
--- NOTE | 2024-10-16 16:47 | DISCHARGE SUMMARY ---
Discharge Summary Providers to CC ~ Discharge Summary Admission Diagnosis: MAJOR DEPRESSIVE DISORDER SEVERE. METHAMPHETAMINE ABUSE. SUICIDE ATTEMPT. Hospital Course DATE OF ADMISSION: DATE OF DISCHARGE: Discharge Diagnosis\\Comment: MAJOR DEPRESSIVE DISORDER SEVERE. METHAMPHETAMINE ABUSE. SUICIDE ATTEMPT. OPIATE ABUSE Operations\\Procedures: NONE Consultants: MEDICAL TEAM Complications: NONE Condition on DC: Stable 2 or more antipsychotic used: No 2/more antipsychotic addressed: No Does Patient smoke: Yes Smoking education given.: Yes New Medications: Naltrexone Hcl (Naltrexone Hcl) 50 Mg Tablet 50 MG PO DAILY for 14 Days, #14 TAB Sertraline HCl (Sertraline HCl) 25 Mg Tablet 75 MG PO DAILY for 14 Days, #60 TAB Discharge Summary: CHART REVIEW Pt attempted suicide by hanging himself, gf cut him down. Pt has a long hx of mh since he witnessed his uncles murder. Pt also has a substance us issue for the last 5 years. Pt is homeless but has a supportive grandmother. Patient actively seen and examined on day of discharge 10/16/2024, by myself, MARLENA Lugo. The patient is interviewed in observation room. The patient endorses "Good." Denies SI. Denies HI. Denies AVH. Aric was able to formulate a safety plan which includes going to the emergency room if symptoms return or worsen. Call [phone] for immediate assistance if necessary. During his hospital stay, Aric receive multidisciplinary treatment he adhered to his medication regimen and has been pleasant and cooperative. He denies any suicidal ideation (SI), homicidal ideation (HI), auditory/visual hallucination (HI). Staff has reported no behavioral issues, and the patient has been sleeping well, adequate food intake, with no mood or behavioral changes noted. The decision to discharge Aric was made in consensus with the treatment team, including the delinquency prevention social worker, community service specialist, and charge authorizer on duty. The patient was E-scribed a 14-day supply of medication. MENTAL STATUS EXAM APPEARANCE: APPROPRIATELY. DRESSED IN STREET CLOTHING. SPEECH: CIRCUMSTANCE EYE CONTACT: NORMAL AFFECT: CONGRUENT WITH MOOD MOOD: "GOOD" ORIENTATION IMPAIRMENT: NONE MEMORY IMPAIRMENT: NONE ATTENTION: NORMAL HALLUCINATIONS: NONE SUICIDALITY: NONE HOMICIDALITY: NONE DELUSIONS: NONE BEHAVIOR: COOPERATIVE, PLEASANT JUDGMENT: POOR INSIGHT: FAIR, POOR Continue Current Inpatient Psychotropic Regimen @ home Follow-Up with Psychiatric Provider Safety Plan Discussed DISCHARGE CONDITION: His readiness for discharge is supported by his stable mental status, adherence to treatment, and proactive approach to managing his mental health. Denies SI. Denies HI. Denies A/V/H. The patient has been informed to continue follow-up care to ensure ongoing support and monitoring. Patient discharged to homeless. *Problems/Diagnosis: (1) Major depress dis, severe (2) Methamphetamine abuse Status: Acute (3) Suicide attempt (4) Opioid abuse Total Time Spent on D/C: > 30 Minutes Counseling Services Smoking & Tobacco Cessation: > 10 Minutes CODING VISIT-PSYCHIATRY Date of Service: October 16, 2024 Billing Provider: JACKELYN MORGAN APRN Psych Common Visit Codes: 45409-KWV/OBS DISCH DAY >30min JACKELYN MORGAN APRN October 16, 2024 16:39
== END 2024-10-16 17:26 | disposition home or self-care (01) | DRG 885 ==
LOC: ADULT MH 19:15 → UNDOADMIN 19:16 → ADULT MH 19:16
PROVIDERS: ADMIT Psychiatry & Neurology Psychiatry; ATTEND Psychiatry & Neurology Psychiatry
DX: F32.2 Major depressive disorder, single episode, severe without psychotic features (principal); Z59.00 Homelessness unspecified; R45.851 Suicidal ideations; T71.162A Asphyxiation due to hanging, intentional self-harm, initial encounter; F15.10 Other stimulant abuse, uncomplicated; F11.10 Opioid abuse, uncomplicated; F41.9 Anxiety disorder, unspecified; F43.10 Post-traumatic stress disorder, unspecified; Z87.891 Personal history of nicotine dependence; X83.8XXA Intentional self-harm by other specified means, initial encounter; Y93.89 Activity, other specified; Y92.89 Other specified places as the place of occurrence of the external cause; Y99.8 Other external cause status
CPT/HCPCS: 36415; 70450; 80053; 80061; 82948; 83036; 83605; 85025; 87081; 93005; 99285; A4649; A6449; J7030; Q0177